=== PATIENT | female | born 1960 | race Caucasian/White ===

== ENCOUNTER → 2021-02-01 | Outpatient (CLI) | payer OTHER | LOC: KOH-I 11:59 | DX: M51.27 Other intervertebral disc displacement, lumbosacral region (principal); M48.56XA Collapsed vertebra, not elsewhere classified, lumbar region, initial encounter for fracture; M51.36 Other intervertebral disc degeneration, lumbar region | CPT/HCPCS: 72100 ==

== ENCOUNTER → 2021-03-24 | Outpatient (CLI) | payer OTHER | LOC: KOH-I 12:17 | DX: M51.27 Other intervertebral disc displacement, lumbosacral region (principal) | CPT/HCPCS: 72148 ==

== ENCOUNTER 2022-07-12 15:00 | Inpatient (IN) | payer OTHER ==
[~2022-07-12] VITALS: Ht 152.4 cm; Wt 97.5 kg
[2022-07-12 18:17] LABS: HEMOGLOBIN 10.6 gm/dl (12.3-15.3); RED BLOOD COUNT 4.08 M/UL (4.00-5.10); WHITE BLOOD COUNT 19.5 K/UL (4.5-11.0)
[2022-07-13] MEDS ORDERED: ELIQUIS5 MG PO (10:23)
[2022-07-13] MEDS ORDERED: NITROGLYCERIN0.4 MG SL (10:23)
[2022-07-13] MEDS ORDERED: AMLODIPINE BESY10 MG PO (10:24)
[2022-07-13] MEDS ORDERED: CILOSTAZOL50 MG PO (10:24)
[2022-07-13] MEDS ORDERED: HYDROCHLOROTH12.5 M1 PO (10:24)
[2022-07-13] MEDS ORDERED: PROAIR HFA8.5 GM INH (10:24)
[2022-07-13] MEDS ORDERED: PROTONIX 40 MG40 M1 PO (10:25)
[2022-07-13] MEDS ORDERED: ENTRESTO 24 MG1 EACH PO (10:25)
[2022-07-13] MEDS ORDERED: TRESIBA FL100 UNIT/1 SQ (10:25)
[2022-07-13] MEDS ORDERED: SYNTHROID125 MCG PO (10:25)
[2022-07-13] MEDS ORDERED: FARXIGA10 MG PO (10:26)
[2022-07-13] MEDS ORDERED: AMIODARONE HCL200 MG PO (10:26)
[2022-07-13] MEDS ORDERED: LEVOCETIRIZINE D5 MG PO (10:27)
[2022-07-13] MEDS ORDERED: KETOTIFEN FUMARA5 ML EYEBOTH (10:27)
[2022-07-13] MEDS ORDERED: METOPROLOL SUCC25 MG PO (10:28)
[2022-07-13] MEDS ORDERED: POTASSIUM CHLO10 ME1 PO (10:28)
[2022-07-13] MEDS ORDERED: LOSARTAN POTASS25 MG PO (10:29)
[2022-07-13] MEDS ORDERED: BRILINTA90 MG PO (10:29)
[2022-07-13] MEDS ORDERED: BUMETANIDE1 MG PO (10:29)
[2022-07-13] MEDS ORDERED: MONTELUKAST SOD10 MG PO (10:29)
[2022-07-13] MEDS ORDERED: HUMALOG100 UNIT/3 INJ (10:30)
[2022-07-13] MEDS ORDERED: ATORVASTATIN CA80 MG PO (10:31)
[2022-07-13] MEDS ORDERED: ASPIRIN EC81 MG PO (10:31)
[2022-07-13] MEDS ORDERED: FLONASE ALLER15.8 ML (10:32)
[2022-07-13] MEDS ORDERED: PREGABALIN75 MG PO (10:32)
[2022-07-13] MEDS ORDERED: BENZONATATE200 MG PO (10:32)
[2022-07-13 16:07] LABS: HEMOGLOBIN 10.2 gm/dl (12.3-15.3); RED BLOOD COUNT 3.98 M/UL (4.00-5.10)
[2022-07-13 16:20] LABS: WHITE BLOOD COUNT 28.3 K/UL (4.5-11.0)
[2022-07-14 05:22] LABS: HEMOGLOBIN 9.3 gm/dl (12.3-15.3); RED BLOOD COUNT 3.63 M/UL (4.00-5.10); WHITE BLOOD COUNT 22.1 K/UL (4.5-11.0)
[2022-07-14 07:10] LABS: HBSAG SCREEN Negative (Negative); HCV AB <0.1 (0.0-0.9); HEP A AB, IGM Negative (Negative); HEP B CORE AB, IGM Negative (Negative)
[2022-07-14] MEDS ORDERED: LEVOPHED DRIP (09:19)
[2022-07-14] MEDS ORDERED: VANCOMYCIN (09:19)
[2022-07-14] MEDS ORDERED: MEROPENEM (09:19)
[2022-07-14] MEDS ORDERED: [UNRECOGNIZED DRUG - OTHER] (09:19)
[2022-07-14] MEDS ORDERED: HEPARIN DRIP (09:19)
[2022-07-14] MEDS ORDERED: [UNRECOGNIZED DRUG - OTHER] (09:20)
[2022-07-17 17:11] LABS: ORGANISM ID Not indicated. (.); SPECIMEN SOURCE Urine (.); STREPTOCOCCUS PNEUMONIAE AG Negative (Negative)
== END 2022-07-14 09:45 | disposition short-term general hospital (02) | DRG 871 ==
LOC: ER1 15:00 → CDU 22:54 → CCU 07-13 15:24
PROVIDERS: Emergency Medicine; Internal Medicine; Internal Medicine Critical Care Medicine; ADMIT Internal Medicine
PROC: 3E03329 Introduction of Other Anti-infective into Peripheral Vein, Percutaneous Approach (ICD-10-PCS; principal; 2022-07-13)
PROC: 3E043XZ Introduction of Vasopressor into Central Vein, Percutaneous Approach (ICD-10-PCS; 2022-07-13)
PROC: B24BZZZ Ultrasonography of Heart with Aorta (ICD-10-PCS; 2022-07-13)
PROC: 05HM33Z Insertion of Infusion Device into Right Internal Jugular Vein, Percutaneous Approach (ICD-10-PCS; 2022-07-13)
PROC: B543ZZA Ultrasonography of Right Jugular Veins, Guidance (ICD-10-PCS; 2022-07-13)
DX: A41.9 Sepsis, unspecified organism (principal); I50.23 Acute on chronic systolic (congestive) heart failure; J18.9 Pneumonia, unspecified organism; R65.21 Severe sepsis with septic shock; N17.9 Acute kidney failure, unspecified; J90 Pleural effusion, not elsewhere classified; I13.0 Hypertensive heart and chronic kidney disease with heart failure and stage 1 through stage 4 chronic kidney disease, or unspecified chronic kidney disease; R18.8 Other ascites; D68.9 Coagulation defect, unspecified; B17.9 Acute viral hepatitis, unspecified; I42.9 Cardiomyopathy, unspecified; Z68.41 Body mass index [BMI] 40.0-44.9, adult; R94.5 Abnormal results of liver function studies; I25.10 Atherosclerotic heart disease of native coronary artery without angina pectoris; Z95.1 Presence of aortocoronary bypass graft; E11.22 Type 2 diabetes mellitus with diabetic chronic kidney disease; E66.9 Obesity, unspecified; E11.51 Type 2 diabetes mellitus with diabetic peripheral angiopathy without gangrene; I73.9 Peripheral vascular disease, unspecified; R74.01 Elevation of levels of liver transaminase levels; E11.40 Type 2 diabetes mellitus with diabetic neuropathy, unspecified; E80.6 Other disorders of bilirubin metabolism; F32.A Depression, unspecified; E03.9 Hypothyroidism, unspecified; F41.9 Anxiety disorder, unspecified; I48.0 Paroxysmal atrial fibrillation; L97.529 Non-pressure chronic ulcer of other part of left foot with unspecified severity; L97.519 Non-pressure chronic ulcer of other part of right foot with unspecified severity; E78.5 Hyperlipidemia, unspecified; R00.1 Bradycardia, unspecified; Z79.4 Long term (current) use of insulin; K74.60 Unspecified cirrhosis of liver; Z79.899 Other long term (current) drug therapy; Z79.82 Long term (current) use of aspirin; Z82.49 Family history of ischemic heart disease and other diseases of the circulatory system; Z88.1 Allergy status to other antibiotic agents; Z87.891 Personal history of nicotine dependence; N18.9 Chronic kidney disease, unspecified
CPT/HCPCS: 36415; 71045; 80053; 80074; 80202; 81001; 82140; 82248; 82550; 82553; 82570; 82607; 82746; 82962; 83036; 83605; 83735; 83880; 84100; 84156; 84439; 84443; 84484; 84550; 85025; 85027; 85610; 85730; 86140; 87040; 87081; 87086; 87278; 87899; 93005; 96365; 96375; 96376; 99285; J0456; J0696; J1265; J1644; J1940; J2185; J3370; J7030; J7070; U0002